=== PATIENT | female | born 1980 | race Caucasian/White ===

== ENCOUNTER 2016-10-23 08:47 | Day surgery (SDC) | payer OTHER ==
[~2016-10-23] VITALS: Ht 165.1 cm; Wt 65.3 kg
[~2016-10-23 08:47] MED LIST: ADDERALL XR 1010 MG PO; CLINDAMYCIN HC300 MG PO; CYCLOBENZAPRINE10 MG PO; FLEXERIL10 MG PO; LIDODERM 5% P1 PATCH TD; OXYCODONE-ACET1 EACH PO; PERCOCET 5/31 TABLET PO; RANITIDINE HCL150 MG PO
[2016-10-27 09:44] LABS: INTERNAL CONTROL VALID? YES
== END 2016-10-23 11:30 | disposition home or self-care (01) ==
LOC: PAIN 08:47 → SDC 09:30 → PAIN 09:30
PROVIDERS: Anesthesiology Pain Medicine
PROC: 015B3ZZ Destruction of Lumbar Nerve, Percutaneous Approach (ICD-10-PCS; principal; 2016-10-23)
DX: M47.816 Spondylosis without myelopathy or radiculopathy, lumbar region (principal); M54.16 Radiculopathy, lumbar region; F41.9 Anxiety disorder, unspecified; M51.36 Other intervertebral disc degeneration, lumbar region; M79.1 Myalgia; Z79.891 Long term (current) use of opiate analgesic; F90.0 Attention-deficit hyperactivity disorder, predominantly inattentive type; G89.29 Other chronic pain; Z86.14 Personal history of Methicillin resistant Staphylococcus aureus infection; Z87.891 Personal history of nicotine dependence
CPT/HCPCS: 84703; J1030; J1885; J2250; J3010; S0020

== ENCOUNTER 2017-06-01 08:40 | Day surgery (SDC) | payer OTHER ==
[~2017-06-01] VITALS: Ht 167.6 cm; Wt 70.2 kg
[~2017-06-01 08:40] MED LIST changes: +FLEXERIL5 MG PO; +LIDOVEX60 GM TP; +RELAFEN500 M1 PO
== END 2017-06-01 10:20 | disposition home or self-care (01) ==
LOC: PAIN 08:40
DX: M47.26 Other spondylosis with radiculopathy, lumbar region (principal); M51.16 Intervertebral disc disorders with radiculopathy, lumbar region; M46.1 Sacroiliitis, not elsewhere classified; M54.5 Low back pain; G89.29 Other chronic pain; K21.9 Gastro-esophageal reflux disease without esophagitis; Z86.14 Personal history of Methicillin resistant Staphylococcus aureus infection; Z87.891 Personal history of nicotine dependence; Z79.891 Long term (current) use of opiate analgesic
CPT/HCPCS: J1030; J1885; J2250; J3010; S0020

== ENCOUNTER 2017-06-11 06:56 | Day surgery (SDC) | payer OTHER ==
[~2017-06-11] VITALS: Ht 165.1 cm; Wt 73.0 kg
[2017-06-11 07:26] VITALS: BP 81/52
[2017-06-11 08:59] LABS: METH RESISTANT S AUREUS PCR NEGATIVE (NEGATIVE)
[2017-06-11 09:00] LABS: PROBE CHECK PASS; SPECIMEN PROCESSING CONTROL PASS
[2017-06-11] MEDS ORDERED: PERCOCET 5/31 TABLET PO (10:33)
[2017-06-11 13:31] VITALS: BP 122/56
[2017-06-11 14:35] VITALS: BP 108/58
[2017-06-11 15:20] VITALS: BP 132/68
== END 2017-06-11 15:25 | disposition home or self-care (01) ==
LOC: SDC 06:56
PROVIDERS: Surgery
PROC: 0JB70ZZ Excision of Back Subcutaneous Tissue and Fascia, Open Approach (ICD-10-PCS; principal; 2017-06-11)
DX: D17.1 Benign lipomatous neoplasm of skin and subcutaneous tissue of trunk (principal); M54.5 Low back pain; G89.29 Other chronic pain; J45.909 Unspecified asthma, uncomplicated; K21.9 Gastro-esophageal reflux disease without esophagitis; Z79.891 Long term (current) use of opiate analgesic; Z86.14 Personal history of Methicillin resistant Staphylococcus aureus infection; M54.16 Radiculopathy, lumbar region
CPT/HCPCS: 87641; 88304; J0131; J0690; J1100; J1170; J1885; J2250; J2405; J3010